=== PATIENT | male | born 1960 | race Caucasian/White ===

== ENCOUNTER 2019-03-31 10:41 | Emergency (ER) | payer BC ==
[2019-03-31] MEDS ORDERED: Ketorolac 60 MG/2 ML SDV IM ONE (11:20)
--- NOTE | 2019-03-31 11:27 | EDM.PDOC ---
ED HPI GENERAL MEDICAL PROBLEM - General Chief Complaint: Neck Problem Stated Complaint: [facility] Time Seen by Provider: 03/31/19 10:57 Source of Information: Reports: Patient, RN Notes Reviewed History Limitations: Reports: No Limitations - History of Present Illness INITIAL COMMENTS - FREE TEXT/NARRATIVE: Patient is a 58-year-old male who presents to the ED via [facility] for the evaluation of neck pain. The patient states that this morning while at breakfast at [employer], he was getting out of his car, and slipped on some ice and landed on his upper back, he states that he constantin his neck at this time, he states that he could have hit his head, but he did not have any loss of consciousness or blacked out. 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 He denies any blurred vision or double vision, no headache, no nausea/vomiting/diarrhea, no chest pain or no shortness of breath. He does note however there is some painful range of motion when he did move his neck, and he does present with a soft neck collar in place. Patient notes most of his pain is at the base of his neck, he does have some midline and lateral tenderness along this point. The patient is unsure as if he broke anything, or just strained some ligaments or muscles. Treatments [employer]: Reports: Nitroglycerin Bilateral Neck Pain Score (Numeric/FACES): 10 - Related Data Allergies Allergy/AdvReac Type Severity Reaction Status Date / Time Penicillins Allergy Cannot Verified 03/31/19 10:49 Remember Home Meds: Home Meds . [No Known Home Meds] 03/31/19 [History] Past Medical History - Past Health History Medical/Surgical History: Denies Medical/Surgical History Respiratory History: Reports: Bronchitis, Recurrent Musculoskeletal History: Reports: Other (See Below) Other Musculoskeletal History: rib fx, skull fx Neurological History: Reports: Head Trauma, Other (See Below) Other Neuro History: depressed skull fx - Infectious Disease History Infectious Disease History: Reports: Measles - Past Surgical History HEENT Surgical History: Reports: Tonsillectomy Social & Family History - Family History Family Medical History: Noncontributory - Tobacco Use Smoking Status *Q: Never Smoker Second Hand Smoke Exposure: Yes - Caffeine Use Caffeine Use: Reports: Coffee - Recreational Drug Use Recreational Drug Use: No ED ROS GENERAL - Review of Systems Review Of Systems: See Below Constitutional: Denies: Fever, Chills Respiratory: Denies: Shortness of Breath Cardiovascular: Denies: Chest Pain GI/Abdominal: Denies: Diarrhea, Nausea, Vomiting Musculoskeletal: Reports: Neck Pain (lateral and medial neck pain at base of neck w painful ROM in all movements.), Back Pain (upper back/base of neck). Denies: Arm Pain Neurological: Denies: Numbness, Tingling ED EXAM, UPPER BACK/NECK PAIN - Physical Exam Exam: See Below Exam Limited By: No Limitations General Appearance: Alert, WD/WN, No Apparent Distress Eye Exam: Bilateral Eye: EOMI, Normal Inspection, PERRL Ears Exam: Normal External Exam, Normal Canal, Hearing Grossly Normal, Normal TMs Nose Exam: Normal Inspection Throat/Mouth Exam: Normal Inspection, Normal Lips, Normal Teeth, Normal Gums, Normal Oropharynx, Normal Voice, No Airway Compromise Head Exam: Atraumatic, Normocephalic Neck Exam: Normal Alignment, Normal Inspection, Limited Range of Motion (d/t pain), Painful Range of Motion, Tender Lateral, Tender Midline Nexus Criteria: Posterior, Midline Cervical Tenderness. No: Evidence of Intoxication, Altered Level of Consciousness, Focal Neurological Deficit, Painful Distraction Injuries Cardiovascular/Respiratory: Regular Rate, Rhythm, No M/R/G, Normal Peripheral Pulses, No JVD, Normal Breath Sounds, No Respiratory Distress GI/Abdominal: Normal Bowel Sounds, Soft, Non-Tender, No Distention, No Mass Extremities: Normal Inspection, Normal Range of Motion, Normal Capillary Refill Neurologic: No Motor/Sensory Deficits, Alert, Normal Mood/Affect, Oriented x 3 Psychiatric: Normal Affect, Normal Mood Skin Exam: Normal Color, Warm/Dry Lymphatic: No Adenopathy Course - Vital Signs Last Recorded V/S: Last Vital Signs Temp 97.7 F 03/31/19 10:44 Pulse 73 03/31/19 10:44 Resp 19 03/31/19 10:44 BP 133/104 H 03/31/19 10:44 Pulse Ox 94 L 03/31/19 10:44 - Orders/Labs/Meds Orders: Active Orders 24 hr Category Date Time Status Cervical Spine wo Cont [CT] Stat Exams 03/31/19 11:19 Ordered Head wo Cont [CT] Stat Exams 03/31/19 11:19 Ordered Meds: Medications Discontinued Medications Generic Name Dose Route Start Last Admin Trade Name Yasmine PRN Reason Stop Dose Admin Ketorolac Tromethamine 60 mg 03/31/19 11:20 03/31/19 12:07 Toradol IM 03/31/19 11:21 60 mg ONETIME ONE Administration - Re-Assessments/Exams Free Text/Narrative Re-Assessment/Exam: 03/31/19 11:29 Patient presents to the ED for the evaluation of neck pain and head injury. I did order head CT without contrast and a cervical spine CT without contrast, and 60 mg IM Toradol for initial management. 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 Patient did not relate a history of any sort of stroke, he will be asked about this when I make him aware of the results. The cervical spine CT also demonstrated no acute abnormalities or subluxations. There is mild degenerative change noted between the dens and anterior arch of C1 , other than that the CT is within normal limits. At this time it does not appear that there is any sort of fracture, will discharge home with general recommendations. 03/31/19 13:33 Patient was made aware of the CT results, and states that he did have a depressed skull fracture in that area in the 1970s, this might account for the decreased brain tissue in the area. Departure - Departure Time of Disposition: 13:22 Disposition: Home, Self-Care 01 Condition: Fair Clinical Impression: Neck pain Head injury Qualifiers: Encounter type: initial encounter Qualified Code(s): S09.90XA - Unspecified injury of head, initial encounter - Discharge Information *PRESCRIPTION DRUG MONITORING PROGRAM REVIEWED*: No *COPY OF PRESCRIPTION DRUG MONITORING REPORT IN PATIENT SHREYAS: No Instructions: Head Injury, Adult, [id number], Cervical Sprain, [id number] Forms: ED Department Discharge, ED Return to Work/School Form Additional Instructions: You have been evaluated in the ED for your head and neck injury. Your CT demonstrated no acute fracture or bony abnormalities on your neck CT, There was an area of decreased brain tissue on the Right frontal portion of your head CT, otherwise there was no bleed identified. The decreased brain tissue is most likely due to your history of a depressed skull fracture in the 1969's. Please use ice/heat as tolerated to the affected area. Please try to elevate the affected area to relieve swelling. You may take Tylenol 500 mg or ibuprofen 600mg q6 hrs for pain relief. Please do so until you have a tolerable level of pain with activity. Do not exceed 4000mg Tylenol or 3200mg ibuprofen in a 24 hour time period. You were given a prescription for some muscle relaxers, please take as directed for further muscle spasms. Please return to ED if your symptoms should change or worsen. - My Orders Last 24 Hours: My Active Orders 03/31/19 11:19 Cervical Spine wo Cont [CT] Stat Head wo Cont [CT] Stat - Assessment/Plan Last 24 Hours: My Active Orders 03/31/19 11:19 Cervical Spine wo Cont [CT] Stat Head wo Cont [CT] Stat
--- NOTE | 2019-04-01 08:05 | CT ---
CT cervical spine Technique: Multiple axial sections were obtained from above C1 inferiorly to the bottom of T2. Reconstructed sagittal and coronal images were reviewed. Comparison: No prior cervical spine imaging. Findings: Mild degenerative change is noted between the dens and anterior arch of C1. Vertebral body heights and disc spaces are maintained. Minimal ligamentum nuchal calcification is seen. Vertebral bodies and posterior arches are intact. No fracture is appreciated. No bony central or bony neural foraminal stenosis is seen. No abnormal subluxation is seen on the reconstructed sagittal images. Impression: 1. Nothing acute is seen on CT study of the cervical spine. 2. Other findings which are believed to be incidental as noted above. Diagnostic code #1 This report was dictated in [place] Standard Time
--- NOTE | 2019-04-01 08:05 | CT ---
Head CT Technique: Multiple axial sections through the brain were obtained. Intravenous contrast was not utilized. Comparison: No prior intracranial imaging. Findings: Low-density encephalomalacia noted within the right frontal lobe. No abnormal parenchymal densities are otherwise seen. No evidence of intracranial hemorrhage. No midline shift or mass effect is seen. Ventricles along with basal cisterns and sulci over the convexities appear within normal limits for the patient's age. Bone window settings were reviewed which show the visualized paranasal sinuses to show nothing acute. No acute calvarial abnormality is seen. Visualized mastoid sinuses are clear. Impression: 1. Nothing acute is seen on noncontrast head CT study. 2. 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 Diagnostic code #3 This report was dictated in [place] Standard Time
== END 2019-03-31 13:47 | disposition home or self-care (01) ==
LOC: JD.ED 10:41
DX: S09.90XA Unspecified injury of head, initial encounter (principal); M54.2 Cervicalgia; Z88.0 Allergy status to penicillin; Z77.22 Contact with and (suspected) exposure to environmental tobacco smoke (acute) (chronic); W00.0XXA Fall on same level due to ice and snow, initial encounter
CPT/HCPCS: 70450; 72125; 96372; 99284; J1885; 99283

== ENCOUNTER 2021-09-08 19:42 | Emergency (ER) | payer BC ==
[2021-09-08] MEDS ORDERED: Acetaminophen/HYDROcodone 325-5 MG Tab PO ONE (20:12)
[2021-09-08] MEDS ORDERED: Clindamycin HCl 150 MG Cap PO ONE (20:12)
== END 2021-09-08 21:15 | disposition home or self-care (01) ==
LOC: JD.ED 19:42
DX: K08.89 Other specified disorders of teeth and supporting structures (principal); Z88.0 Allergy status to penicillin; Z79.899 Other long term (current) drug therapy
CPT/HCPCS: 99282; A9270

== ENCOUNTER 2024-07-31 14:25 | Emergency (ER) | payer BC ==
[2024-07-31] MEDS ORDERED: Sodium Chloride 0.9% 10 ML Syringe FLUSH PRN (14:39)
[2024-07-31 14:54] LABS: BASOPHILS PERCENT AUTO 0.4 % (0.0-1.0); EOSINOPHILS ABSOLUTE AUTO 0.1 K/mm3 (0.0-0.4); EOSINOPHILS PERCENT AUTO 1.4 % (0.0-6.0); HEMATOCRIT 46.1 % (42.0-52.0); HEMOGLOBIN 15.9 gm/dl (14.0-18.0); IMMATURE GRAN ABSOLUTE AUTO 0.02 K/mm3 (0.00-0.05); IMMATURE GRAN PERCENT AUTO 0.3 % (0.0-0.4); LYMPHOCYTES ABSOLUTE AUTO 1.4 K/mm3 (1.0-4.8); LYMPHOCYTES PERCENT AUTO 19.4 % (24.0-44.0); MEAN CORPUSCULAR HEMOGLOBIN 33.8 pg (28.0-32.0); MEAN CORPUSCULAR HGB CONC 34.5 g/dl (32.0-36.0); MEAN CORPUSCULAR VOLUME 97.9 fl (83.0-99.0); MEAN PLATELET VOLUME 10.1 fl (9.4-12.4); MONOCYTES ABSOLUTE AUTO 0.7 K/mm3 (0.0-0.8); MONOCYTES PERCENT AUTO 9.2 % (0.0-8.0); NEUTROPHILS PERCENT AUTO 69.3 % (41.0-71.0); PLATELET COUNT,PLT 168 K/mm3 (150-400); RED BLOOD CELL COUNT 4.71 M/mm3 (4.52-5.90); WHITE BLOOD CELL COUNT,WBC 7.15 K/mm3 (3.9-11.3)
[2024-07-31] MEDS: Sodium Chloride 0.9% 10 ML Syringe FLUSH ONE (15:01)
[2024-07-31] MEDS: Iopamidol 612 MG/ML 100 ML Bottle IVPUSH ONE (15:02)
[2024-07-31 15:10] LABS: INR 0.97; PROTHROMBIN TIME 10.3 SECONDS (9.7-12.0)
[2024-07-31 15:12] LABS: PTT,PARTIAL THROMBOPLSTIN TIME 23.9 SECONDS (21.7-31.4)
[2024-07-31 15:16] LABS: A/G RATIO 1.1 (1-2); ALBUMIN 3.7 g/dl (3.4-5.0); ANION GAP 10.1 (5-15); BILIRUBIN TOTAL 0.5 mg/dL (0.2-1.0); BUN/CREATININE RATIO 16.7 (14-18); CALCIUM 8.6 mg/dL (8.5-10.1); CREATININE 1.2 mg/dL (0.7-1.3); EST CRCL DRUG DOSING (CG) 65.9 mL/min; POTASSIUM,K 4.1 mEq/L (3.5-5.1); PROTEIN TOTAL,TP 7.1 g/dl (6.4-8.2)
== END 2024-07-31 16:50 | disposition home or self-care (01) ==
LOC: JD.ED 14:25
DX: S20.212A Contusion of left front wall of thorax, initial encounter (principal); S00.83XA Contusion of other part of head, initial encounter; S77.12XA Crushing injury of left thigh, initial encounter; Z88.0 Allergy status to penicillin; W11.XXXA Fall on and from ladder, initial encounter; Y93.89 Activity, other specified
CPT/HCPCS: 36415; 70450; 71260; 72125; 73552; 74177; 80053; 83690; 85025; 85610; 85730; 99285; Q9967; 99283